=== PATIENT | male | born 1995 | race Two or more races ===

== ENCOUNTER 2020-01-19 19:27 | Emergency (ER) | payer SELFPAY ==
[~2020-01-19] VITALS: Ht 171.4 cm; Wt 68.9 kg
--- NOTE | 2020-01-19 20:30 | NUR ---
PT BIBSELF C/O MIDEPIGASTRIC PAIN X2 WEEKS. ALSO C/O NAUSEA, VOMITTING, AND LOSS OF APPETITE. PT STATES HE'S BEEN DRINKING A LOT OF WATER BUT "STILL FEEL VERY DEHYDRATED". PT AAOX4. RESPIRATIONS EVEN AND UNLABORED. SKIN WARM AND INTACT. VITAL SIGNS STABLE. NO ACUTE DISTRESS NOTED AT THIS TIME. PLACED IN GOWN AND ON MONITOR, WILL CONTINUE TO [facility] [place]
--- NOTE | 2020-01-19 20:37 | NUR ---
CONSTANTINO ANDRES AT BEDSIDE FOR EVALUATION
--- NOTE | 2020-01-19 20:43 | NUR ---
IV INITIATED RAC 18G. LABS DRAWN FROM SITE AND SENT TO LAB. IV INTACT AND PATENT, PLACED ON SALINE LOCK
[2020-01-19] MEDS ORDERED: ONDANSETRON HCL/PF 4 MG/2 ML VIAL ONE (20:54)
[2020-01-19] MEDS ORDERED: KETOROLAC TROMETHAMINE INJ 30 MG/ML VIAL ONE (20:54)
[2020-01-19 20:59] LABS: BASOPHILS % (AUTO) 0.6 % (0.0-2.0); EOSINOPHILS % (AUTO) 1.3 % (0.0-6.0); HEMATOCRIT 50 % (39-51); HEMOGLOBIN 16.5 g/dL (13.5-17.5); LYMPHOCYTES # (AUTO) 2.4 /CMM (0.8-4.8); LYMPHOCYTES % (AUTO) 30.9 % (20.0-44.0); MEAN CORPUSCULAR HGB CONC 33 g/dl (31.0-36.0); MEAN CORPUSCULAR VOLUME 88 fL (80-96); MONOCYTES # (AUTO) 0.5 /CMM (0.1-1.30); MONOCYTES % (AUTO) 5.8 % (2.0-12.0); NEUTROPHILS # (AUTO) 4.8 /CMM (1.8-8.9); NEUTROPHILS % (AUTO) 61.4 % (43.0-81.0); PLATELET COUNT (AUTO) 214 /CMM (150-450); RED BLOOD CELL COUNT(AUTO) 5.62 MIL/uL (4.5-6.0); WHITE BLOOD COUNT (AUTO) 7.9 K/uL (4.3-11.0)
[2020-01-19] MEDS ORDERED: KETOROLAC TROMETHAMINE INJ 30 MG/ML VIAL IV ONE (21:00)
[2020-01-19] MEDS ORDERED: ONDANSETRON HCL/PF 4 MG/2 ML VIAL IVP ONE (21:00)
[2020-01-19] MEDS ORDERED: IV NS 0.9% 1,000 ML BAG IV ONE (21:00)
[2020-01-19 21:07] LABS: CALCIUM, SERUM 9.6 mg/dL (8.5-10.1); CREATININE 0.8 mg/dL (0.6-1.3); POTASSIUM 3.7 mmol/L (3.5-5.1)
[2020-01-19 21:13] LABS: ALBUMIN 4.9 g/dL (3.4-5.0); BILIRUBIN,DIRECT 0.2 mg/dL (0.0-0.2); BILIRUBIN,TOTAL 0.7 mg/dL (0.2-1.0); TOTAL PROTEIN, SERUM 8.8 g/dL (6.4-8.2)
[2020-01-19 21:17] LABS: BILIRUBIN,URINE Negative (NEGATIVE); BLOOD, URINE Negative Ery/uL (NEGATIVE); COLOR,URINE ORANGE (YELLOW); LEUKOCYTE ESTERASE ,URINE Trace (NEGATIVE); NITRITE, URINE Negative (NEGATIVE); PROTEIN,URINE Negative (NEGATIVE); UGLUCOSE Negative (NEGATIVE); UROBILINOGEN,URINE 0.2 EU/dL (0.2)
[2020-01-19] MEDS ORDERED: IOHEXOL-300 100 ML VIAL IV ONE (22:16)
[2020-01-19] MEDS ORDERED: IV NS 0.9% 250 ML IV ONE (22:16)
[2020-01-19 22:18] LABS: RBC,URINE 0-2 /HPF (0-2)
[2020-01-19 22:19] LABS: BACTERIA,URINE None seen /HPF (None Seen); SQUAMOUS EPITHELIAL CELL,UR Few /HPF (None Seen)
--- NOTE | 2020-01-19 22:21 | NUR ---
PT [facility]OUG[facility] BY RADIOLOGY [facility]
--- NOTE | 2020-01-19 22:30 | NUR ---
PT RETURNED FROM CT
[2020-01-19 23:45] VITALS: BP 125/79
--- NOTE | 2020-01-19 23:45 | NUR ---
Patient discharged to home in stable condition. Written and verbal after care instructions given. Patient verbalizes understanding of instruction.IV removed. Catheter intact and site benign. Pressure and 4x4 applied to site. No bleeding noted.Pt ambulatory with a steady gait
== END 2020-01-19 23:46 | disposition home or self-care (01) ==
LOC: ER 19:30
DX: R10.31 Right lower quadrant pain (principal); R11.2 Nausea with vomiting, unspecified
CPT/HCPCS: 36415; 74177; 80048; 80076; 81001; 83690; 85025; 96361; 96374; 96375; 99285; J1885; J2405; J7030; J7050; Q9967